=== PATIENT | male | born 1975 | race Asian ===

== ENCOUNTER 2019-12-03 04:10 | Outpatient (CLI) | payer BC, SELFPAY ==
[2019-12-03 09:33] LABS: Abs Immature Grans 0.02 10^3/uL (0.0-0.06); Absolute Basophil Count 0.04 10^3/uL (0.0-0.2); Absolute Eosinophil Count 0.07 10^3/uL (0.0-0.7); Absolute Lymphocyte Count 1.98 10^3/uL (1.2-3.4); Absolute Monocyte Count 0.56 10^3/uL (0.1-0.8); Absolute Neutrophil Count 4.39 10^3/uL (1.2-6.7); Basophils % 0.6; HCT 45.9 % (40.0-50.0); HGB 15.2 g/dL (13.5-17.5); Immature Grans % 0.3; MCH 29.2 pg (27.0-33.0); MCHC 33.1 % (32.0-36.0); MCV 88.1 fL (80-95); MPV 9.3 fL (8.0-11.0); Monocytes % 7.9; Neutrophils % 62.2; Nucleated RBC 0 %; Platelet Count 366 10^3/uL (130-400); RBC 5.21 10^6/uL (4.36-5.78); RDW 12.1 % (11.8-14.1); RDW-SD 38.7 fL; WBC 7.06 10^3/uL (4.4-10.8)
[2019-12-03 10:17] LABS: Hemoglobin A1C 5.1 % (<5.7)
[2019-12-03 10:39] LABS: ALT 51 U/L (16-63); AST 29 U/L (15-37); Albumin 3.8 g/dL (3.4-5.0); Alkaline Phosphatase 60 U/L (46-116); Anion Gap 7.7 mmol/L (3-11); BUN 11 mg/dL (7-18); CO2 27.3 mmol/L (21.0-32.0); CREATININE 0.94 mg/dL (0.70-1.30); Calcium 8.8 mg/dL (8.5-10.1); Calculated LDL 98 mg/dL (<100); Chloride 103 mmol/L (98-107); Cholesterol 194 mg/dL (<200); Ferritin 78 ng/mL (26-388); Glucose 103 mg/dL (74-106); HDL Cholesterol 45 mg/dL (40-60); Potassium 4.2 mmol/L (3.5-5.1); Sodium 138 mmol/L (136-145); TSH 2.48 uIU/mL (0.36-3.74); Total Protein 7.2 g/dL (6.4-8.2); Triglyceride 257 mg/dL (<150)
[2019-12-03 11:01] LABS: C-Reactive Protein < 0.05 mg/dL (0.0-0.3)
[2019-12-05 08:02] LABS: 25-Hydroxy D Total 11 ng/mL; 25-Hydroxy D2 <4.0 ng/mL; 25-Hydroxy D3 11 ng/mL
== END 2019-12-03 04:30 ==
PROVIDERS: PCP Naturopath; Visit Provider Naturopath
DX: R53.83 Other fatigue (principal); E07.9 Disorder of thyroid, unspecified; R07.9 Chest pain, unspecified; E55.9 Vitamin D deficiency, unspecified; Z13.1 Encounter for screening for diabetes mellitus; Z13.220 Encounter for screening for lipoid disorders
CPT/HCPCS: 36415; 80053; 80061; 82306; 82728; 83036; 84443; 85025; 86140

== ENCOUNTER 2019-12-21 00:18 | Outpatient (CLI) | payer BC, SELFPAY ==
--- NOTE | 2019-12-21 09:00 | ETT_ITS ---
APPROVED REPORT Exam: Exercise Treadmill Patient Location: Out-Patient Room/Bed: Stress Nurse: Carli Marcial RN BMI: 26.30 Baseline Rhythm: Sinus Rhythm Indications: Intermittent, nonradiating, left sided chest pain, described as a sharp tingling sensati on. Medical History Medical History: HTN. HLD. Cardiac Medications: None. Allergies: No known drug allergies Cardiac Risk Factors: HTN, Hyperlipidemia, Smoking (former) Previous Cardiac Procedures: None. Pretest Chest Pain Characteristics: None. Exercise History: Sedentary Physical Disabilities: None. Lung Sounds: Clear to auscultation Heart Sounds: Regular Stress Test Details Test: Exercise stress testing was performed using a Richard protocol. Rest Stress HR Resting HR Supine: 87 bpm Max Heart Rate (APMHR): 176 bpm Resting HR Standin bpm Target HR (85% APMHR): 149 bpm Max HR Achieved: 169 bpm % of APMHR: 96 Recovery HR: 110 bpm HR response to stress: Normal HR response to stress BP Resting BP Supine: 160/112 mmHg Resting BP Standin/110 mmHg Max BP: 184/88 mmHg Recovery BP: 144/102 mmHg BP response to stress: Normal blood pressure response to stress. Comment: Hypertensive at baseline. ECG Resting ECG: Sinus Rhythm Ectopy: None. Stress ECG: Sinus Tachycardia ST Change: No significant ST segment changes noted. Arrhythmia: None, None, APC's Recovery ECG: Sinus Tachycardia Recovery ST Change: No significant ST segment changes noted. Recovery Arrhythmia: None Clinical Reason for Termination: Fatigue Stress Symptoms: None. Exercise duration: 10 min43 sec Highest Stage Reached: Stage 4: 4.2 mph at 16% grade. Exercise capacity: 12.97 METs Stress ECG Conclusion 1. Electrocardiogram is normal. The patient exercised on the Richard protocol and completed a workload of 12.97 METS 2. Resting hypertension. Normal heart rate and blood pressure response to exercise 3. Electrocardiographically the test was negative for myocardial ischemia at 96% of predicted heart r ate for age 4. There were no dysrhythmias 5. Tan treadmill score was 10, low risk Stress Test Summary STAGE Time (mins) Speed (mph) Grade (%) HR BP SYMPTOMS METS Supine 87 160/112 Standing 92 154/110 1 3 1.7 10 114 164/116 4.6 2 6 2.5 12 132 170/96 7 3 9 3.4 14 150 180/90 10.2 1 min recovery 148 184/88 3 min recovery 122 162/96 6 min recovery 110 150/108 9 min recovery 110 144/102
== END 2019-12-21 00:38 ==
PROVIDERS: PCP Naturopath; Visit Provider Naturopath
DX: R07.9 Chest pain, unspecified (principal); R20.0 Anesthesia of skin; I10 Essential (primary) hypertension; E78.5 Hyperlipidemia, unspecified; Z87.891 Personal history of nicotine dependence
CPT/HCPCS: 93017

== ENCOUNTER 2020-12-23 01:50 | Outpatient (CLI) | payer BC, SELFPAY ==
[2020-12-23 14:23] VITALS: BP 108/78; PULSE 90; RESP 24; TEMP 36.3; O2SAT 93
[2020-12-23] MEDS: Normal Saline 500 ML 30 ML IV (14:23)
[2020-12-23 14:35] VITALS: BP 117/84; PULSE 87; RESP 22; TEMP 36.6; O2SAT 95
[2020-12-23 14:59] VITALS: BP 110/78; PULSE 88; RESP 18; TEMP 36.6; O2SAT 99
[2020-12-23 15:29] VITALS: BP 104/79; PULSE 88; RESP 20; TEMP 36.8; O2SAT 99
[2020-12-23 15:58] VITALS: BP 109/83; PULSE 82; RESP 16; TEMP 36.4; O2SAT 97
== END 2020-12-23 01:51 | disposition home or self-care (01) ==
LOC: INF 01:51
PROVIDERS: PCP Naturopath; Visit Provider Family Medicine
DX: U07.1 COVID-19 (principal)
CPT/HCPCS: 96365

== ENCOUNTER 2021-08-07 19:02 | Emergency (ER) | payer BC, SELFPAY ==
--- OUTSIDE RECORDS SUMMARY | 2021-08-07 19:09 | XMS_ITS | Encounter Summary ---
:1975 Demographics Home Phone Preferred Language Unknown Marital Status Unknown Synagogue Affiliation Unknown Race Unknown Ethnic Group Unknown Author Organization [facility] Address [address] [place] [address] Care Team Providers Name Role Phone Unavailable Primary Care Provider Unavailable Encounter Details Date Type Department Care Team Description 12/08/2020 Lab Requisition [facility] Outr Resulting Lab, Pathology & Laboratory Provider [facility] [address] [place] [address] Social History Tobacco Use Types Packs/Day Years Used Date Never Assessed Sex Assigned at Date Recorded Not on file documented as of this encounter Plan of Treatment Not on filedocumented as of this encounter Procedures Procedure Name Priority Date/Time Associated Comments Diagnosis QUANTIFERON MITOGEN Today 12/07/2020 14:40 (PERFORMABLE) EDT QUANTIFERON TB2 Today 12/07/2020 14:40 (PERFORMABLE) EDT QUANTIFERON TB1 Today 12/07/2020 14:40 (PERFORMABLE) EDT QUANTIFERON NIL Today 12/07/2020 14:40 (PERFORMABLE) EDT QUANTIFERON Today 12/07/2020 14:40 Results for this INTERPRETATION EDT procedure are in (PERFORMABLE) the results section. QUANTIFERON TB GOLD Routine 12/07/2020 14:40 Resu lts for this PLUS EDT procedure are i n the results section. documented in this encounter Results QUANTIFERON INTERPRETATION (PERFORMABLE) (12/07/2020 14:40 EDT) Quantiferon NegativeComment: No Negative [facility] Interpretation interferon-gamma [facility] response to M. SERVICES tuberculosis antigens was detected. ??Infection with M. tuberculosis is unlikely. A single negative result does not exclude infection with M. tuberculosis. ??In patients at high risk for M. tuberculosis infection, a second test should be considered. TB1 Ag minus Nil 0.13 IU/ml [facility] TB2 Ag minus Nil 0.19 IU/mL [facility] Specimen Blood - Venous blood (substance) Narrative [facility] - 12/09/2020 13:41 EDT Results were obtained with the Qiagen QuantiFERON-TB Gold Plus CLIA. New platform in use 10/19/2020 Performing Organization Address City/[facility]/ZIP Code Phon e Number [facility] [address] [place] [address] SERVICES QUANTIFERON MITOGEN (PERFORMABLE) (12/07/2020 14:40 EDT) Specimen Blood - Venous blood (substance) Performing Organization Address City/[facility]/ZIP Code Phon e Number [facility] [address] [place] [address] SERVICES QUANTIFERON TB2 (PERFORMABLE) (12/07/2020 14:40 EDT) Specimen Blood - Venous blood (substance) Performing Organization Address [facility]/ZIP Code Phon e Number [facility] [address] [place] [address] SERVICES QUANTIFERON TB1 (PERFORMABLE) (12/07/2020 14:40 EDT) Specimen Blood - Venous blood (substance) Performing Organization Address City/[facility]/ZIP Code Phon e Number [facility] [address] [place] [address] SERVICES QUANTIFERON NIL (PERFORMABLE) (12/07/2020 14:40 EDT) Specimen Blood - Venous blood (substance) Performing Organization Address [facility]/ZIP Code Phon e Number [facility] [address] [place] [address] SERVICES documented in this encounter Visit Diagnoses Not on filedocumented in this encounter
--- OUTSIDE RECORDS SUMMARY | 2021-08-07 19:09 | XMS_ITS | Clinical Summary ---
:1975 Demographics Home Phone Preferred Language Unknown Marital Status Unknown Buddhism Affiliation Unknown Race Unknown Ethnic Group Unknown Author Organization [facility] Address [address] [place] [id number] Care Team Providers Name Role Phone Unavailable Primary Care Provider Unavailable Social History Tobacco Use Types Packs/Day Years Used Date Never Assessed Sex Assigned at Date Recorded Not on file Plan of Treatment Health Maintenance Due Date Last Done Comments Hepatitis C Screen 1975 COVID-19 Vaccine (1) 1987
--- OUTSIDE RECORDS SUMMARY | 2021-08-07 19:09 | XMS_ITS | Encounter Summary ---
:1975 Demographics Home Phone Preferred Language Unknown Marital Status Unknown Jewish Affiliation Unknown Race Unknown Ethnic Group Unknown Author Organization [facility] Address [address] [place] [address] Care Team Providers Name Role Phone Unavailable Primary Care Provider Unavailable Encounter Details Date Type Department Care Team Description 12/07/2020 Lab Requisition [facility] Outr Resulting Lab, Pathology & Laboratory Provider [facility] [address] [place] [address] Social History Tobacco Use Types Packs/Day Years Used Date Never Assessed Sex Assigned at Date Recorded Not on file documented as of this encounter Plan of Treatment Not on filedocumented as of this encounter Procedures Procedure Name Priority Date/Time Associated Diagnosis Comme nts HOLD SST Today 12/07/2020 14:40 Results for this EDT procedure are i n the results section. MEASLES IGG AB Today 12/07/2020 14:40 Results f or this EDT procedure are i n the results section. RUBELLA IGG Today 12/07/2020 14:40 Results for this ANTIBODY EDT procedure are i n the results section. HEPATITIS B SURFACE Today 12/07/2020 14:40 Resu lts for this ANTIBODY EDT procedure are i n the results section. VARICELLA IGG Today 12/07/2020 14:40 Results fo r this ANTIBODY EDT procedure are i n the results section. MUMPS ANTIBODY IGG Today 12/07/2020 14:40 Resul ts for this EDT procedure are i n the results section. documented in this encounter Results HOLD SST (12/07/2020 14:40 EDT) Pathologist Sig nature Hold Hold [facility] Specimen Blood - Venous blood (substance) Performing Organization Address City/State/ZIP Code Phon e Number [facility] [address] [place] [address] SERVICES HEPATITIS B SURFACE ANTIBODY (12/07/2020 14:40 EDT) Hep B Surface Ab, <3.1 See Note [facility] Quantitative Comment: mIU/mL [facility] Reference Range for Hep B Surface Ab, Quant: SERVICES Positive: >= 10.0 mIU/mL Negative: ??< 10.0 mIU/mL Patient is presumed to not be immune to infection with Hepatitis B Virus. Hep B Surface Ab, Negative See Note [facility] Comment: [facility] Reference Range for Hep B Surface Ab, Qual: SERVICES Unvaccinated: ??Negative Vaccinated: ??Positive Specimen Blood - Venous blood (substance) Performing Organization Address City/State/ZIP Code Phon e Number [facility] [address] [place] [address] SERVICES MEASLES IGG AB (12/07/2020 14:40 EDT) Measles IgG Ab PositiveComment: See Note [facility] Presence of LABORATORY SERVICES detectable measles virus IgG antibodies. Specimen Blood - Venous blood (substance) Performing Organization Address City/[facility]/ZIP Code Phon e Number [facility] [address] [place] [address] SERVICES VARICELLA IGG ANTIBODY (12/07/2020 14:40 EDT) Varicella IgG Ab PositiveComment: See Note [facility] Presence of LABORATORY SERVICES detectable Varicella Zoster virus IgG antibodies. Specimen Blood - Venous blood (substance) Performing Organization Address City/State/ZIP Code Phon e Number [facility] [address] [place] [address] SERVICES MUMPS ANTIBODY IGG (12/07/2020 14:40 EDT) Mumps Antibody IgG PositiveComment: See Note [facility] Presence of LABORATORY SERVICES detectable mumps virus IgG antibodies. Specimen Blood - Venous blood (substance) Performing Organization Address City/[facility]/ZIP Code Phon e Number [facility] [address] [place] [address] SERVICES RUBELLA IGG ANTIBODY (12/07/2020 14:40 EDT) Rubella IgG Ab PositiveComment: See Note [facility] Positive for IgG LABORATORY SERVICES antibodies to Rubella virus. Specimen Blood - Venous blood (substance) Performing Organization Address City/State/ZIP Code Phon e Number [facility] [address] [place] [address] SERVICES documented in this encounter Visit Diagnoses Not on filedocumented in this encounter
[2021-08-07 19:13] VITALS: BP 136/108; PULSE 113; RESP 18; TEMP 36.6; O2SAT 99
--- NOTE | 2021-08-07 20:00 | DI.RAD_ITS ---
Exam(s) XR FOOT LT COMPLETE EXAM: XR FOOT LT COMPLETE CLINICAL HISTORY: great toe pain, concerning for gout. TECHNIQUE: 2D digital imaging was performed of the left foot. Three images were obtained. AP, obli que and lateral views were obtained. COMPARISON: No exams were available for comparison FINDINGS: BONES: No acute fracture is present. No bony destructive lesion is seen. JOINTS: No dislocation present. On the oblique view there is a question of a early erosive change inv olving the medial aspect of the head of the 1st metatarsal. There is soft tissue swelling around the 1st metatarsophalangeal joint. These findings would be consistent with the patient's history of gou t. SOFT TISSUE: Normal. IMPRESSION: 1. No acute fracture or dislocation. 2. Soft tissue swelling around the 1st MTP joint. Question of early erosive changes involving the me dial aspect of the head of the 1st metatarsal bone. These findings would be consistent with the faith ent's history of gout. DATA REPOSITORY: RADIATION DOSE DELIVERED:
--- NOTE | 2021-08-07 20:05 | ED.GENADUL_ITS ---
Discharge Plan Disposition Patient Disposition: HOME Condition: Stable Discharge Details Clinical Impression: Gout attack Primary Care Provider: Sonja Escamilla ED Provider: Judy Do Home Meds and New Rx's Prescriptions: New prednisone 20 mg tablet 40 mg PO DAILY 4 Days Qty: 8 0RF Continued acetaminophen 500 mg Tablet 1,000 mg PO Q6H PRN ibuprofen [Advil Liqui-Gel] 200 mg Capsule 400 mg PO Q6H PRN PRN Discharge Instructions Instructions: Gout (ED) Additional Instructions: Your history, exam and labs are most consistent with acute gout flare. As we discussed, please try to avoid alcohol and future. I have attached information regarding dietary changes that you can use to help prevent this. Please encourage hydration. May use Tylenol and/or ibuprofen as needed for discomfort. Please take the prednisone as prescribed to help with the acute flare, your next dose is not due until tomorrow night. Please follow-up with primary care in the next 1 to 2 weeks for reevaluation. If you develop spreading of the redness, fever/chills, increased pain or other new/worsening symptoms please seek care urgently once again Referrals: Sonja Escamilla [Primary Care Provider] - Discharge Data Discharge Date/Time-TO BE ENTERED AT DEPARTURE: 08/07/21 21:53 Medical Decision Making Patient is a pleasant 46-year-old gentleman presented with chief complaint of left great toe pain. He reports that this began about 3 days ago and is progressively increasing. He questions if he may have stubbed his toe in the middle of the night a few nights prior to this. States that the pain has been increasing, he has been having difficulty even putting his shoe on secondary to the pain. Has not had pain with historically. Denies any fever chills. Does have family history of gout. On exam, patient appears nontoxic. Skin left lower extremity significant for erythema of the left great toe, significant discomfort with palpation over this area. Erythema is quite localized not started to spread. Toe is not involved distal to the erythema. No signficant swelling. No streaking. Intact distal pulses and capillary refill. No lesions, no involvement of plantar surface. Primary concerned at this time for gout. Patient drinks ETOH daily, has family history. While he did stub his toe, it sounds like this was days prior and exam is not consistent with trauma. He has not had spread, break in the skin, fevers/chills which would suggest infection. Will obtain XR for evaluat with remote trauma and to look for intrarticular abnormalies. Will obtain baseline labs, including inflammatory markers and uric acid levels. Hx of HTN which he is not curreently treating. XR reviewed by radiologist: FINDINGS: Bones/joints: Bone mineralization is age-appropriate. There is no evidence of fracture. No evidence of dislocation. Noninflamed enthesophyte seen within the region of the Achilles tendon. The joint spaces are adequately preserved; no significant degenerative narrowing and no bony erosion seen. Soft tissues: Soft tissue swelling at the 1st metatarsal-phalangeal joint consistent with the patient's history of suspected gout. No radiopaque foreign body present. There is soft tissue swelling present. IMPRESSION: 1. No acute osseous abnormality. 2. Soft tissue swelling only. 3. Soft tissue swelling at the 1st metatarsal-phalangeal joint consistent with the patient's history of suspected gout. Labs reviewed. No leukocytosis. CRP elevated. Uric acid WNL but elevated per diagnostic criteria. Acute Gout Diagnosis Rule 11 points making htis high probability. Will treat for gout. Discussed with patient. Advised on concern for gout. We discussed ways to p revent this in the future. encouraged RICE. Will start on steroids, paitent denies hx of DM. With uncontrolled HTN, more concerned with risk of NSAIDS. Return precautiosn discussed, in particular symptoms of infection.Encouraged f/u with PCP. All of his questions and concerns were addressed, he is in agreement with this plan. HPI General Date/Time Provider Initiated Documentation: 08/07/21 20:05 . Limitations to Documentation: no limitations . Information obtained by: patient and RN notes reviewed . History of Present Illness 46 year old M presents to the emergency department with the chief complaint of left great toe pain, described as moderate, with intensity rated at 7. Quality is described as aching, and is localized to the left and lower extremity. Patient reports no radiation. Patient started experiencing this day(s) and it has been constant. Immobilization improves symptom(s), Movement worsens symptoms . Patient notes no other symptoms.. Patient did receive the following treatments prior to arrival, none Related Data Home Medications Medication Instructions Recorded Confirmed acetaminophen 500 mg tablet 1,000 mg PO Q6H PRN 11/12/21 06/27/22 ibuprofen 200 mg capsule (Advil 400 mg PO Q6H PRN PRN 08/07/21 08/07/21 Liqui-Gel) prednisone 20 mg tablet 40 mg PO DAILY 4 days #8 tabs 08/07/21 Previous Rx's Medication Instructions Recorded prednisone 20 mg tablet 40 mg PO DAILY 4 days #8 tabs 08/07/21 Allergies Allergy/AdvReac Type Severity Reaction Status Date / Time pecan nut Allergy Verified 08/07/21 19:19 walnut Allergy Verified 08/07/21 19:19 General Stated Complaint: Orthopedic SHRUTHI: 4 Review of Systems Constitutional Constitutional: Reports as per HPI, Denies chills and Denies fever(s) Respiratory Respiratory: Reports as per HPI and Denies cough Musculoskeletal Musculoskeletal: Reports as per HPI and Denies tingling Integumentary/Breasts Skin/Breast: Reports as per HPI and Denies wounds Neurologic Neurologic: Reports as per HPI, Denies tingling and Denies paresthesias PFSH All Active Problems (Updated 08/07/21 @ 21:26 by DANY Martin) Gout attack (Acute) Medical History (Updated 08/07/21 @ 21:26 by DANY Martin) Hernia Hypertension SARS-CoV-2 positive Sleep apnea Strep throat Social History Smoking/Tobacco Use Status: Never Smoking risk assessment performed?: Yes Alcohol Intake: current Alcohol Intake frequency: 3 or more drinks per day Substance use type: does not use Do you feel safe at home: Yes Do you feel safe in your relationship?: Yes Additional Social history: Exam Const General: cooperative, healthy appearing, comfortable, no acute distress, well developed and well groomed Nutritional Appearance: average body habitus and well nourished Orientation: alert and awake Resp Effort & Inspection: normal respiratory effort, able to speak in complete sentences and no respiratory distress Cardio Rate: regular rate Rhythm: regular rhythm Skin General skin exam: erythema Lesions: no lesions Rashes: no rashes Trauma: no lacerations or abrasions Neuro General: patient alert and patient awake Cognition: normal cognition Speech: speech normal Gait: normal gait Motor: muscle tone normal throughout Sensory Exam: no sensory deficits noted Extrem Ankle/foot/toe images: 1. Area of erythema and pain. Quite tender to gentle palpation. Sensation intact. No break in the skin. Slightly warm. No streaking or spreading. No pain proximal or distal with palpation. No erythema on plantar surface. Psych Appearance: grossly normal and well kempt Mental Status: mental status grossly normal Speech and Movement: speech and movement normal Course Vital Signs Vital signs: Vital Signs Temperature 36.6 C 08/07/21 19:13 Pulse 113 H 08/07/21 19:13 Respiratory Rate 18 08/07/21 19:13 Blood Pressure 136/108 H 08/07/21 19:13 Pulse Oximetry 99 08/07/21 19:13 Temperature 36.6 C 08/07/21 19:13 Temperature Source Temporal Artery Scan 08/07/21 19:13 Pulse 113 H 08/07/21 19:13 Respiratory Rate 18 08/07/21 19:13 Respiratory Effort 08/07/21 19:19 Blood Pressure 136/108 H 08/07/21 19:13 Blood Pressure Position Sitting 08/07/21 19:13 Pulse Oximetry 99 08/07/21 19:13 Oxygen Delivery Method Room Air 08/07/21 19:13 Oxygen Flow Rate 0 08/07/21 19:13 Pain Level 7 08/07/21 19:19 PAWSS Have you Been Recently Intoxicated or Drunk Within the Last 30 days?: No Have you Ever Experienced Previous Episodes of Alcohol Withdrawal?: No Have you ever Experienced Withdrawal Seizures?: No Have you ever Experienced Delirium Tremens(DT)s?: No Have you ever undergone Alcohol Rehabilitation Treatment (i.e, inpt ot outpatient treatment programs)?: No Have you ever Experienced Blackouts?: No Have you ever Combined Alcohol with other Downers within the last 90 days?: No Have you ever Combined Alcohol with any other Substance of Abuse during the last 90 days?: No Positive Blood Alcohol level on Presentation? [PCS.BAL]: No Evidence of Increased Autonomic Activity (i.e. HR>120, tremor, sweating, agitation, nausea)?: No Result: 0
[2021-08-07 20:48] LABS: Abs Immature Grans 0.02 10^3/uL (0.0-0.06); Absolute Basophil Count 0.04 10^3/uL (0.0-0.2); Absolute Eosinophil Count 0.09 10^3/uL (0.0-0.7); Absolute Monocyte Count 0.65 10^3/uL (0.1-0.8); Absolute Neutrophil Count 5.97 10^3/uL (1.2-6.7); Basophils % 0.5; Eosinophils % 1.1; HCT 42.8 % (40.0-50.0); HGB 14.6 g/dL (13.5-17.5); Immature Grans % 0.2; MCH 29.7 pg (27.0-33.0); MCHC 34.1 % (32.0-36.0); MCV 87 fL (80-95); MPV 9.6 fL (8.0-11.0); Monocytes % 7.6; Neutrophils % 69.6; Platelet Count 319 10^3/uL (130-400); RBC 4.92 10^6/uL (4.36-5.78); RDW 11.9 % (11.8-14.1); RDW-SD 38.4 fL; WBC 8.57 10^3/uL (4.4-10.8)
[2021-08-07 20:52] LABS: ESR 10 mm/hr (0-15)
[2021-08-07 20:58] LABS: C-Reactive Protein 1.69 mg/dL (0.0-0.3)
[2021-08-07 21:02] LABS: ALT 62 U/L (16-63); AST 37 U/L (15-37); Albumin 3.9 g/dL (3.4-5.0); Alkaline Phosphatase 72 U/L (46-116); Anion Gap 8.1 mmol/L (3-11); BUN 23 mg/dL (7-18); Bilirubin, Total 0.6 mg/dL (0.2-1.0); CO2 26.9 mmol/L (21.0-32.0); Calcium 9.2 mg/dL (8.5-10.1); Chloride 102 mmol/L (98-107); Glucose 101 mg/dL (74-106); Potassium 3.9 mmol/L (3.5-5.1); Sodium 137 mmol/L (136-145); Total Protein 7.8 g/dL (6.4-8.2); Uric Acid 6.4 mg/dL (3.5-7.2)
--- NOTE | 2021-08-07 21:16 | DI.VRAD_ITS ---
PROCEDURE INFORMATION: Exam: XR Left Foot Exam date and time: 08/07/2021 8:32 PM Age: 46 years old Clinical indication: Foot and toes; Left; Patient HX: Great toe pain, concerning for gout TECHNIQUE: Imaging protocol: Radiologic exam of the Left foot. Views: 3 or more views. COMPARISON: No relevant prior studies available. FINDINGS: Bones/joints: Bone mineralization is age-appropriate. There is no evidence of fracture. No evidence of dislocation. Noninflamed enthesophyte seen within the region of the Achilles tendon. The joint spaces are adequately preserved; no significant degenerative narrowing and no bony erosion seen. Soft tissues: Soft tissue swelling at the 1st metatarsal-phalangeal joint consistent with the patient's history of suspected gout. No radiopaque foreign body present. There is soft tissue swelling present. IMPRESSION: 1. No acute osseous abnormality. 2. Soft tissue swelling only. 3. Soft tissue swelling at the 1st metatarsal-phalangeal joint consistent with the patient's history of suspected gout. Dictated and Authenticated by: Gideon Saez MD. Ordering:RUBEN Kim MD
[2021-08-07] MEDS: predniSONE 20 MG TAB 40 MG PO (21:30)
== END 2021-08-07 21:53 | disposition home or self-care (01) ==
PROVIDERS: Emergency Provider Physician Assistant; PCP Naturopath
DX: M10.072 Idiopathic gout, left ankle and foot (principal)
CPT/HCPCS: 80053; 85652; 99283; 73630; 84550; 85025; 86140; J7512

== ENCOUNTER 2022-03-28 01:40 | Outpatient (CLI) | payer OTHER, SELFPAY ==
[2022-03-28 10:06] LABS: Abs Immature Grans 0.03 10^3/uL (0.0-0.06); Absolute Basophil Count 0.02 10^3/uL (0.0-0.2); Absolute Eosinophil Count 0.11 10^3/uL (0.0-0.7); Absolute Lymphocyte Count 1.58 10^3/uL (1.2-3.4); Absolute Monocyte Count 0.47 10^3/uL (0.1-0.8); Absolute Neutrophil Count 3.07 10^3/uL (1.2-6.7); Basophils % 0.4; Eosinophils % 2.1; HCT 47.8 % (40.0-50.0); HGB 15.8 g/dL (13.5-17.5); Immature Grans % 0.6; Lymphocytes % 29.9; MCH 29.2 pg (27.0-33.0); MCHC 33.1 % (32.0-36.0); MCV 88 fL (80-95); MPV 9.2 fL (8.0-11.0); Monocytes % 8.9; Neutrophils % 58.1; Platelet Count 333 10^3/uL (130-400); RBC 5.41 10^6/uL (4.36-5.78); RDW 11.9 % (11.8-14.1); RDW-SD 38.3 fL; WBC 5.28 10^3/uL (4.4-10.8)
[2022-03-28 11:36] LABS: ALT 57 U/L (16-63); AST 32 U/L (15-37); Albumin 3.8 g/dL (3.4-5.0); Alkaline Phosphatase 67 U/L (46-116); Anion Gap 9.6 mmol/L (3-11); BUN 16 mg/dL (7-18); Bilirubin, Total 0.3 mg/dL (0.2-1.0); CO2 26.4 mmol/L (21.0-32.0); CREATININE 0.9 mg/dL (0.70-1.30); Calculated LDL 110 mg/dL (<100); Chloride 104 mmol/L (98-107); Cholesterol 200 mg/dL (<200); Estimated GFR 106.67 (mL/min/1.73m2); Glucose 115 mg/dL (74-106); HDL Cholesterol 50 mg/dL (40-60); Potassium 4.5 mmol/L (3.5-5.1); Sodium 140 mmol/L (136-145); Total Protein 7.4 g/dL (6.4-8.2); Triglyceride 202 mg/dL (<150)
[2022-03-28 11:48] LABS: Uric Acid 7.1 mg/dL (3.5-7.2)
[2022-03-29 10:22] LABS: Hepatitis C Ab w Rflx HCV PCR Negative (Negative)
[2022-03-29 11:25] LABS: HIV-1/2 Ag & Ab Screen Negative (Negative)
== END 2022-03-28 01:41 | disposition home or self-care (01) ==
LOC: LBO 01:40
PROVIDERS: PCP Nurse Practitioner Family; Visit Provider Nurse Practitioner Family
DX: M10.9 Gout, unspecified (principal); I10 Essential (primary) hypertension; Z13.1 Encounter for screening for diabetes mellitus; Z72.89 Other problems related to lifestyle; Z11.59 Encounter for screening for other viral diseases; Z11.4 Encounter for screening for human immunodeficiency virus [HIV]; E78.5 Hyperlipidemia, unspecified
CPT/HCPCS: 36415; 80053; 80061; 86803; 87389; 84550; 85025

== ENCOUNTER 2022-04-11 03:03 | Outpatient (CLI) | payer OTHER, SELFPAY ==
[2022-04-18 15:08] LABS: Misc Referral (MAYO) See Comments
== END 2022-04-11 03:04 | disposition home or self-care (01) ==
PROVIDERS: PCP Nurse Practitioner Family; Referring Provider Nurse Practitioner Family; Visit Provider Nurse Practitioner Family
DX: M10.9 Gout, unspecified (principal); Z51.81 Encounter for therapeutic drug level monitoring
CPT/HCPCS: 36415; 81381

== ENCOUNTER 2022-05-08 02:18 | Outpatient (CLI) | payer OTHER, SELFPAY ==
[2022-05-08 10:57] LABS: Uric Acid 5.5 mg/dL (3.5-7.2)
== END 2022-05-08 02:19 | disposition home or self-care (01) ==
LOC: LBO 02:18
PROVIDERS: Absent Provider Nurse Practitioner Family; PCP Nurse Practitioner Family; Referring Provider Nurse Practitioner Family; Visit Provider Nurse Practitioner Family
DX: M10.9 Gout, unspecified (principal)
CPT/HCPCS: 36415; 84550

== ENCOUNTER 2022-10-30 12:57 | Outpatient (CLI) | payer OTHER, SELFPAY ==
[2022-10-30 09:55] LABS: Abs Immature Grans 0.05 10^3/uL (0.0-0.06); Absolute Basophil Count 0.04 10^3/uL (0.0-0.2); Absolute Eosinophil Count 0.15 10^3/uL (0.0-0.7); Absolute Lymphocyte Count 1.86 10^3/uL (1.2-3.4); Absolute Monocyte Count 0.63 10^3/uL (0.1-0.8); Absolute Neutrophil Count 3.62 10^3/uL (1.2-6.7); Basophils % 0.6; Eosinophils % 2.4; HCT 44.8 % (40.0-50.0); HGB 15.2 g/dL (13.5-17.5); Immature Grans % 0.8; Lymphocytes % 29.3; MCHC 33.9 % (32.0-36.0); MCV 89 fL (80-95); MPV 9.3 fL (8.0-11.0); Monocytes % 9.9; Platelet Count 341 10^3/uL (130-400); RBC 5.06 10^6/uL (4.36-5.78); RDW 12.5 % (11.8-14.1); RDW-SD 40.9 fL; WBC 6.35 10^3/uL (4.4-10.8)
[2022-10-30 10:19] LABS: ESR < 1 mm/hr (0-15)
[2022-10-30 10:25] LABS: C-Reactive Protein 0.15 mg/dL (0.0-0.3)
== END 2022-10-30 12:58 | disposition home or self-care (01) ==
LOC: LBO 12:58
PROVIDERS: PCP Nurse Practitioner Family; Visit Provider Nurse Practitioner Family
DX: I10 Essential (primary) hypertension (principal); E78.5 Hyperlipidemia, unspecified; M10.9 Gout, unspecified; R73.01 Impaired fasting glucose; G47.61 Periodic limb movement disorder
CPT/HCPCS: 36415; 85652; 84550; 85025; 86140

== ENCOUNTER 2023-01-01 09:03 | Day surgery (SDC) | payer OTHER, SELFPAY ==
--- NOTE | 2022-12-31 15:54 | PDOC.DSDIS_ITS ---
Date of service: 01/01/23 Time of Service: 13:00 Discharge Plan Disposition Patient Disposition: Home Condition: Good Discharge Details Reason For Visit: colon scope Attending Provider: Debby Antonio Primary Care Provider: Shalom Smith Home Meds and New Rx's Prescriptions: No Action CBD PO triamcinolone acetonide 0.1 % cream 1 applic topical BID PRN (Reason: rash) Qty: 15 0RF Rx Instructions: Apply thin film to affected area (face, but not near eyes or mouth) BID for up to 2 weeks at a time allopurinol 100 mg tablet 100 mg PO DAILY Qty: 90 3RF naproxen 500 mg tablet 500 mg PO BID PRN (Reason: gout) Hold Instructions: Changed by Provider Rx Instructions: Usual duration of treatment is 5-7 days. Continue medication for 2-3 days after full symptom resolution. acetaminophen 500 mg Tablet 1,000 mg PO Q6H PRN losartan 50 mg tablet 50 mg PO HS Discharge Instructions Additional Instructions: D[facility] Colonoscopy Post- Op Instructions Instructions for Everyone who is given Anesthesia: For your safety, please do the following for the next twenty-four (24) hours: *Do Not operate a motor vehicle (car, truck, motorcycle, etc.) *Do Not drink alcoholic beverages or use any recreational drugs for the first 24 hours or while taking pain medications. The medications in your body may have a reaction that can be dangerous. *Do Not make any important decisions or sign any important papers. Findings: Colon polyps x2 Right-sided diverticula Angioectasia in the rectum Follow up: My office will send a letter in 2 to 3 weeks time with the results of the pathology and when we want you to repeat the colonoscopy, most likely in 5 years time. Make sure you are moving your bowels on a regular basis and you are not straining. If you find you are having problems with constipation or straining to move your bowels, then it is recommended you start a fiber supplement such as Metamucil. 1. No lifting over 20 pounds or strenuous activity for the first 24 hours after your procedure. After 24 hours there are no restrictions on your activity but you may feel fatigued for a few days. 2. After you arrive home you may have a light meal and return to your normal diet as you can tolerate it without feeling sick to your stomach. 3. You may have a bloated, gaseous feeling in your belly (abdomen) after a colonoscopy. Passing gas and belching will help. Walking or lying down on your left side with your knees flexed may relieve the discomfort. Call the office at [phone] (Office) or [phone] (Hospital) right away if you notice any of the following: a.Vomiting of blood or ?coffee ground stools?. b.Rectal bleeding 1Tbsp, blood clots or continuous bleeding. c.Severe belly (abdominal) pain. d.A hard distended belly (abdomen) and an inability to pass gas. 4. Please don?t expect to have a normal BM (bowel movement) for 2-3 days after your procedure. 5. If there are questions regarding the findings of your procedure, please contact your doctor 6. If you are unable to contact your doctor with a problem, contact the hospital at [phone]. 7. Continue all your regular medications unless directed otherwise. I understand the above instructions and have no questions. Signature of Patient or Adult Escort Name of Responsible Adult Escort Signature of Nurse Date/Time Stand Alone Forms: Anesthesia Discharge Inst., Colonoscopy Post Instructions, Arvin Raya (DSU) Activity:: see above Diet:: see above Discharge Orders Discharge Orders: Discharge Order (Routine); Ordered 01/01/23 Ordered By: Debby Antonio Discharge Data Discharge Date/Time-TO BE ENTERED AT DEPARTURE: 01/01/23 13:30 DS: Diagnosis Discharge Diagnosis (1) Positive fecal immunochemical test: Status: Acute Asessment and Plan: The patient is seen and examined after their colonoscopy.? The patient has been able to pass gas.? They are not having abdominal pain.? They have been able to tolerate liquids and a snack.? They do not have any nausea or vomiting.? They are not having any chest pain or shortness of breath.??? They are not having any rectal bleeding. Their vital signs have been stable-see nursing notes. We discussed findings during their colonoscopy, and any biopsies that were done/polyps that were removed. The patient will be sent a letter with any biopsy results, and when to repeat the colonoscopy.-see discharge instructions. Patient was given explicit instructions to follow-up regarding colonoscopy-refer to discharge instructions.? We reviewed resumption of medications. Patient verbalized understanding and discharged in stable and satisfactory condition- See nursing notes. (2) Hyperlipidemia, unspecified: Status: Chronic (3) IFG (impaired fasting glucose): Status: Acute (4) Sleep apnea: Status: Chronic (5) Hypertension: Status: Chronic (6) Gout: Status: Chronic (7) Periodic limb movement disorder: Status: Chronic (8) Adenomatous polyps: Status: Acute (9) Diverticula of colon: Status: Acute
[2023-01-01 09:07] VITALS: BP 135/102; PULSE 88; RESP 20; TEMP 36.5; O2SAT 98
[2023-01-01] MEDS: Lactated Ringers 1,000 ML 80 ML IV (09:43)
--- NOTE | 2023-01-01 09:48 | W.ANESPRE ---
General Info Date of Service Date Performed: 01/01/23 Height: 5 ft 6 in Weight: 72.4 kg Body Mass Index (BMI): 25.7 Surgical Procedure: Operation Date: 01/01/23 10:20 Proposed Procedure Side Surgeon nikki Antonio, DO Meds Allergies and Home Medications Allergies Allergy/AdvReac Type Severity Reaction Status Date / Time pecan nut Allergy Anaphylaxis Verified 01/01/23 09:30 walnut Allergy Anaphylaxis Verified 01/01/23 09:30 Home Medication Medication Instructions Recorded acetaminophen 500 mg tablet 1,000 mg PO Q6H PRN 12/23/20 CBD PO 09/27/21 allopurinol 100 mg tablet 100 mg PO DAILY #90 tabs 07/04/22 triamcinolone acetonide 0.1 % 1 applic topical BID PRN rash #15 07/04/22 topical cream grams naproxen 500 mg tablet 500 mg PO BID PRN gout 12/20/22 losartan 50 mg tablet 50 mg PO HS 12/31/22 Current Visit Medications: Current Medications Generic Name Dose Route Start Last Admin Trade Name Freq PRN Reason Stop Dose Admin Hyoscyamine Sulfate 0.125 mg 01/01/23 03:35 Hyoscyamine 0.125 Mg Sl/Oral/Chew SL 01/31/23 03:34 DIRECTED PRN Ringer's Solution 1,000 mls @ 80 mls/hr 01/01/23 06:00 IV 01/01/23 23:59 INFUSION DEON IV Miscellaneous Supplies 1 each 01/01/23 06:00 Iv Access IV 01/01/23 23:59 DIRECTED DEON Ondansetron HCl 4 mg 01/01/23 03:35 Ondansetron 4 Mg/2 Ml Vial IVP 01/31/23 03:34 Q4H PRN PRN Nausea / Vomiting Sodium Chloride 0 ml 01/01/23 06:00 Normal Saline Flush 10 Ml Syr IV 01/01/23 23:59 PRN PRN Sodium Chloride 0 ml 01/01/23 06:00 Normal Saline 10 Ml Vial IJ 01/01/23 23:59 DIRECTED PRN Sterile Water 0 ml 01/01/23 06:00 Water,Injection,Sterile 10 Ml Vial IJ 01/01/23 23:59 DIRECTED PRN PFSH Active Problems Active Problems: Problem Status Onset Code Positive fecal immunochemical test R19.5 Suppurative otitis media of left ear without rupture of ear drum H66.42 Skin lesion of face L98.9 Hyperlipidemia, unspecified E78.5 IFG (impaired fasting glucose) R73.01 Sleep apnea G47.30 Hypertension I10 Gout ~2021 M10.9 Periodic limb movement disorder G47.61 Medical History Medical History Alcohol intake above recommended sensible limits 03/2022: Patient reports he stopped drinking Hernia SARS-CoV-2 positive Surgical History Surgical History Status post left inguinal hernia repair (~2003) Per pt report Tobacco Smoking/Tobacco Use Status: Former Tobacco Use Alcohol Alcohol Intake: current Alcohol intake frequency: 3 or more drinks per day Substance Use Substance use: Occasionally Substance use type: does not use and other Details: CBD Vital Signs and Lab Results Vital Signs Most Recent Vital Signs in EMR: Most Recent Vital Signs Temp Pulse Resp BP Pulse Ox 36.5 C 88 20 135/102 H 98 01/01/23 09:07 01/01/23 09:07 01/01/23 09:07 01/01/23 09:07 01/01/23 09:07 Lab Results Blood Type / Crossmatch: No Data to Display Complete Blood Count: No Data to Display Complete Metabolic Panel: No Data to Display Liver Function Panel: No Data to Display Coagulation Panel: No Data to Display Cardiac Panel: No Data to Display Arterial Blood Gas: No Data to Display Venous Blood Gas: No Data to Display Pancreas Panel: No Data to Display Thyroid Panel: No Data to Display Infectious Disease: No Data to Display Blood Cultures: No Data to Display Toxicology Panel: No Data to Display Imaging and Studies Imaging and Studies Study information below may be from another EMR and interpreted by another provider. Please see original notes in EMR for more complete details. Stress Test Summary: Stress ECG Conclusion 1. Electrocardiogram is normal. The patient exercised on the Richard protocol and completed a workload of 12.97 METS 2. Resting hypertension. Normal heart rate and blood pressure response to exercise 3. Electrocardiographically the test was negative for myocardial ischemia at 96% of predicted heart rate for age 4. There were no dysrhythmias 5. Tan treadmill score was 10, low risk 12/21/19 Anesthesia Assessment and Plan Anesthesia History Personal History: No History of Anesthesia Complications Family History: No Family History of Anesthesia Complications Exercise Tolerance Exercise Tolerance: Metabolic Equivalents>4 Pertinent Negatives Pertinent Negatives: No Symptoms of GERD (only with fatty or spicy foods), No Major Cardiovascular Symptoms or Complaints and No Major Pulmonary Symptoms or Complaints Cardiac & Pulmonary Exam Cardiac Exam: Normal S1/S2 Heart Sounds Pulmonary Exam: Clear Bilateral Breath Sounds Cardiac and Pulmonary Comment:: Sleep apnea, intermittent CPAP use. Implantable Cardiac Device Does patient have a Pacemaker or an ICD?: No Airway Exam Known Difficult Airway: No Mallampati Class: 3 Mouth Opening: Normal (> 3cm) Thyromental Distance: Greater than 3 cm Neck Range of Motion: Full ROM Neck Circumference: Normal Teeth Condition: Normal Dentition ASA Classification ASA Score: ASA 2 Emergency Case?: No NPO Status NPO Status: NPO Clears >2 hours, Solids >8 hours Anesthesia Plan Resuscitation Status: Full Code Anesthesia Technique: General Anesthesia Airway Planned: Natural Airway Monitors Used: Standard Monitors
[2023-01-01 09:50] VITALS: BMI 25.7
--- NOTE | 2023-01-01 10:57 | BOWEL_PTH ---
PATIENT: Jonathan La LOC: [facility] U#:[id number] AGE/SX: 47/M ROOM: RE01/01/[address]: Debby Antonio : 1975 BED: DIS: 01/01/2023 SPEC #: [id number] RECD: 01/01/23 12:08 STATUS: NENO REJoseph #: [id number] SHERRON: 01/01/23 10:[address]: Debby Antonio DEPT: Surgical Specimen RECD BY: Maritza Marrero ENTERED: 01/01/23 12:10 SP TYPE: Bowel OTHR DR: Shalom Smith DO Tissues: 1 - BIOPSY BOWEL 2 - BIOPSY BOWEL 3 - BIOPSY BOWEL Procedures: GROSS AND MICRO LEVEL 4 Comments: [id number]
[2023-01-01 11:39] VITALS: BP 111/76; PULSE 98; RESP 18; TEMP 36.5; O2SAT 98
--- NOTE | 2023-01-01 11:44 | W.COLOREPORT ---
Date of service: 01/01/23 Time of Service: 11:44 Colonoscopy Report Date of procedure: 01/01/23 Pre-op diagnosis general: Positive Cologuard Post-op diagnosis procedure note: other (Right-sided diverticula/polyps x2/large internal hemorrhoidal polyp) Surgeon: Debby Antonio Anesthesia Type: General:No Airway Estimated blood loss (mL): 5 Pathology: other Complications: None Disposition: same day Prep: Miralax/Dulcolax Retraction Time: 37 Procedure Description: After informed consent was obtained the patient was taken to the procedure room and placed in a left decubitous position. Monitors were applied and a time out was done. The patients name, date of , procedure, allergies to medications and metal in their body was reviewed. The patient was then sedated. Once sedated and comfortable a rectal exam was done. External exam was normal. Internal exam revealed a normal sphincter tone and no palpable masses. The prostate without masses The scope was then introduced and retrofelexed. Grade 1 in all 3 columns of internal hemorrhoids were identified. He has a large prolapsing hemorrhoidal polyp. The scope was then advanced to the cecum without difficulty. The TI and appendiceal orifice were identified. The prep was BBPS 2 in all segments for total of 6. He does have a few large right-sided diverticula. There is no signs of active bleeding or infection. The scope was then slowly retracted over 37 minutes back into the rectum. He has a pedunculated 1 cm polyp at 90 cm that is removed with a cold snare. A clip is placed over the defect. He has a pedunculated 0.75 cm at 50 cm. All specimens are retrieved and no bleeding is noted. This was removed with a cold biting forcep. At the anorectal junction there appears to be a multiple angioectasias. 2 sales account representative biopsies are taken. There is some bleeding and these are fulgurated. He also has a large 2 cm what appears to be fibroepithelial polyp from a prolapsing internal hemorrhoid. The scope was removed and the patient was woken up and taken back to Same day surgery in stable condition. The patient tolerated the procedure well and there were no immediate complications. Follow up: The patient should follow up in 5 years. Pathology pending, unless they develop changes in bowel habits or other new gastrointestinal complaints.
[2023-01-01 12:13] VITALS: BP 137/109; PULSE 80; RESP 18; TEMP 36.5; O2SAT 100
--- NOTE | 2023-01-01 12:43 | W.ANESPOSTOP ---
Postoperative Evaluation Date, Time and Location Date Performed: 01/01/23 Time Performed: 12:33 Patient Location: Day Surgery Unit Vital Signs Most Recent Imported Vital Signs: Most Recent Vital Signs Temp Pulse Resp BP Pulse Ox 36.5 C 80 18 137/109 H 100 01/01/23 12:13 01/01/23 12:13 01/01/23 12:13 01/01/23 12:13 01/01/23 12:13 Pain Score Most Recent Pain Score: Most Recent Pain Score Pain Level 0 01/01/23 12:13 Assessment Mental Status: Awake (Alert & Oriented to Patient Baseline) Airway and Respiratory Function: Patent airway with normal (patient baseline) respiratory exam Cardiovascular Function: Hemodynamically Stable Hydration Status: Adequately Hydrated Nausea & Vomiting: No Nausea or Vomiting Pain: Pt. Denies Any Pain Peripheral Nerve Block: Patient did not receive a nerve block
== END 2023-01-01 13:30 | disposition home or self-care (01) ==
LOC: SUR 09:03
PROVIDERS: PCP Family Medicine; Visit Provider Surgery
PROC: 0DJD8ZZ Inspection of Lower Intestinal Tract, Via Natural or Artificial Opening Endoscopic (ICD-10-PCS; CPT 45378; principal; 2023-01-01 10:15)
DX: Z12.11 Encounter for screening for malignant neoplasm of colon (principal); R19.5 Other fecal abnormalities; D37.4 Neoplasm of uncertain behavior of colon; K57.30 Diverticulosis of large intestine without perforation or abscess without bleeding; K64.0 First degree hemorrhoids; I10 Essential (primary) hypertension; D12.5 Benign neoplasm of sigmoid colon
CPT/HCPCS: 45385; 45380; 88305; J2704

== ENCOUNTER 2023-12-18 03:35 | Outpatient (CLI) | payer OTHER, SELFPAY ==
[2023-12-18 10:02] LABS: BUN 17 mg/dL (7-18); CO2 29.1 mmol/L (21.0-32.0); Calcium 8.9 mg/dL (8.5-10.1); Estimated GFR 92.84 (mL/min/1.73m2); Glucose 112 mg/dL (74-106); Uric Acid 5.2 mg/dL (3.5-7.2)
[2023-12-18 10:03] LABS: Hemoglobin A1C 5.3 % (<5.7)
[2023-12-18 10:04] LABS: C-Reactive Protein < 0.50 mg/dL (<or=0.5)
[2023-12-18 10:18] LABS: Anion Gap 7.9 mmol/L (3-11); Chloride 105 mmol/L (98-107); Potassium 4.4 mmol/L (3.5-5.1); Sodium 142 mmol/L (136-145)
== END 2023-12-18 03:36 | disposition home or self-care (01) ==
PROVIDERS: PCP Nurse Practitioner Adult Health; Referring Provider Family Medicine; Visit Provider Nurse Practitioner Adult Health
DX: I10 Essential (primary) hypertension (principal); R73.01 Impaired fasting glucose
CPT/HCPCS: 36415; 80048; 83036; 84550; 86140

== ENCOUNTER 2024-07-22 02:50 | Outpatient (CLI) | payer OTHER, SELFPAY ==
--- NOTE | 2024-07-22 07:30 | DI.MRI_ITS ---
Exam(s) MR LOWER JOINT RT WO EXAM: MR LOWER JOINT RT WO CLINICAL HISTORY: acute medial pain after squat/lift,M25.561. TECHNIQUE: Multiplanar multisequence MRI was performed. COMPARISON: CR XR KNEE RT 3V AP,LAT,EVE from 07/22/2024 FINDINGS: BONES: There is no fracture or contusion pattern. There is a bipartite patella. Minimal marrow signa l is seen in the osseous fragment. JOINTS: Articular cartilage is unremarkable. No effusion is present. There is a small amount of fluid in the proximal tibial fibular joint. TENDONS: Extensor mechanism: Unremarkable. Medial retinaculum: Unremarkable. Lateral retinaculum: Unremarkable. Popliteus: Unremarkable. MUSCLES: Unremarkable. MENISCI: The medial meniscus is unremarkable. The lateral meniscus is unremarkable. SOFT TISSUES: There is a tiny popliteal cyst. LIGAMENTS: Anterior Cruciate: Unremarkable. Posterior Cruciate: Unremarkable. Medial Collateral:Unremarkable. Lateral Collateral: Unremarkable. OTHER: IMPRESSION: 1. There is no acute meniscal or ligament tear. 2. No evidence of an acute fracture. 3. Incidental findings in the knee as described above. DATA REPOSITORY:
--- NOTE | 2024-07-22 07:30 | DI.RAD_ITS ---
Exam(s) XR KNEE RT 3V AP,LAT,EVE EXAM: XR KNEE RT 3V AP,LAT,EVE CLINICAL HISTORY: Sudden onset pain in right knee,M25.561. TECHNIQUE: 2D digital imaging was performed of the right knee. Three views obtained. AP, lateral an d PA tunnel views were obtained. COMPARISON: No exams were available for comparison FINDINGS: BONES: No acute fracture is present. No bony destructive lesion is seen. Note is made of a bipartite patella which is a normal variant. JOINTS: The knee is normally aligned. No joint effusion is seen. SOFT TISSUE: Normal. IMPRESSION: No acute fracture or dislocation. DATA REPOSITORY: RADIATION DOSE DELIVERED:
== END 2024-07-22 03:10 ==
LOC: DI 02:50
PROVIDERS: PCP Nurse Practitioner Adult Health; Visit Provider Family Medicine
DX: M25.561 Pain in right knee (principal)
CPT/HCPCS: 73562; 73721

== ENCOUNTER 2025-01-20 00:39 | Outpatient (CLI) | payer OTHER, SELFPAY ==
[2025-01-20 09:36] LABS: Abs Immature Grans 0.04 10^3/uL (0.0-0.06); HCT 44.7 % (40.0-50.0); HGB 14.8 g/dL (13.5-17.5); Immature Grans % 0.6 %; MCH 29.0 pg (27.0-33.0); MCHC 33.1 % (32.0-36.0); MCV 88 fL (80-95); MPV 9.0 fL (8.0-11.0); Platelet Count 341 10^3/uL (130-400); RBC 5.11 10^6/uL (4.36-5.78); RDW 12.3 % (11.8-14.1); RDW-SD 39.1 fL; WBC 6.33 10^3/uL (4.4-10.8)
[2025-01-20 10:35] LABS: Magnesium 2.1 mg/dL (1.6-2.6)
[2025-01-20 10:39] LABS: TSH (W/Ref FT4) 1.54 uIU/mL (0.55-4.78)
[2025-01-20 10:43] LABS: ALT 77 U/L (10-49); AST 57 U/L (<34); Albumin 4.4 g/dL (3.2-5.0); Alkaline Phosphatase 72 U/L (46-116); Anion Gap 9.4 mmol/L (3-11); BUN 18 mg/dL (9-23); Bilirubin, Total 0.5 mg/dL (0.2-1.2); CO2 26.6 mmol/L (20.0-31.0); Calcium 9.0 mg/dL (8.3-10.6); Chloride 106 mmol/L (98-107); Cholesterol 213 mg/dL (<200); Glucose 108 mg/dL (74-106); HDL Cholesterol 49 mg/dL (>40); Potassium 4.5 mmol/L (3.5-5.1); Sodium 142 mmol/L (136-145); Total Protein 7.1 g/dL (5.7-8.2); Uric Acid 5.6 mg/dL (3.7-9.2)
[2025-01-20 18:44] LABS: Hepatitis C Ab w Rflx HCV PCR Negative (Negative)
== END 2025-01-20 00:40 | disposition home or self-care (01) ==
LOC: LBO 00:40
PROVIDERS: PCP Nurse Practitioner Adult Health; Visit Provider Nurse Practitioner Adult Health
DX: R42 Dizziness and giddiness (principal); K21.9 Gastro-esophageal reflux disease without esophagitis; R51.9 Headache, unspecified; Z11.59 Encounter for screening for other viral diseases
CPT/HCPCS: 36415; 80053; 80061; 83721; 86803; 83735; 84443; 84550; 85025